=== PATIENT | male | born 1995 | race Two or more races ===

== ENCOUNTER 2020-04-03 14:30 | Emergency (ER) | payer OTHER ==
[~2020-04-03] VITALS: Ht 180.3 cm; Wt 70.3 kg
[2020-04-03 15:01] VITALS: BP 116/84
[2020-04-03] MEDS ORDERED: HYDROcodone-ACET 5/325MG TAB PO ONE (15:45)
== END 2020-04-03 16:14 | disposition home or self-care (01) ==
LOC: ER 14:30
DX: S62.302A Unspecified fracture of third metacarpal bone, right hand, initial encounter for closed fracture (principal); V49.9XXA Car occupant (driver) (passenger) injured in unspecified traffic accident, initial encounter; Y93.89 Activity, other specified; Y92.89 Other specified places as the place of occurrence of the external cause; Y99.8 Other external cause status
CPT/HCPCS: 29125; 73130